=== PATIENT | male | born 1955 | race Caucasian/White ===

== ENCOUNTER 2024-02-08 10:56 | Outpatient (CLI) | payer MEDICARE, BC ==
[2024-02-07 15:59] LABS: ALBUMIN 3.6 G/DL (3.4-5.0); ANION GAP 10 (8-16); BLOOD UREA NITROGEN 16 MG/DL (7-18); BUN/CREATININE RATIO 14.5 (10.0-20.0); CALCIUM 8.5 MG/DL (8.5-10.1); CHLORIDE 101 MMOL/L (99-107); GLUCOSE 97 MG/DL (70-104); POTASSIUM 3.9 MMOL/L (3.5-5.1); PRO BRAIN NATRIURETIC PEPTIDE 88 PG/ML (0-125); SODIUM 135 MMOL/L (135-145); TOTAL CARBON DIOXIDE 24.3 MMOL/L (24-32); eGFR 66 ML/MIN
[~2024-02-08 10:56] MED LIST: ATOR-2 PO; CHOL100046 PO; OMEG-166 PO; VALS80TA32 PO; iohexol 350MG/ML 100ml bottle IV ONE
[2024-02-08] MEDS ORDERED: iohexol 350MG/ML 100ml bottle IV ONE (11:06)
== END 2024-02-08 23:59 | disposition home or self-care (01) ==
LOC: RAD 10:56
PROVIDERS: ATTEND Internal Medicine Cardiovascular Disease
DX: J43.9 Emphysema, unspecified (principal); J98.4 Other disorders of lung; J98.11 Atelectasis; I71.20 Thoracic aortic aneurysm, without rupture, unspecified
CPT/HCPCS: 36415; 71275; 80048; 83880; Q9967